=== PATIENT | male | born 1955 | race Caucasian/White ===

== ENCOUNTER 2017-08-21 07:57 | Outpatient (CLI) | payer BC ==
[2017-08-21 08:54] LABS: BUN (Urea Nitrogen) 16 mg/dL (8.4-25.7); Calc. Creatinine Clearance 0 mL/min (70-130); Estimated GFR-MDRD Greater than 90
--- NOTE | 2017-08-21 11:56 | CT ---
CT NECK WITH CONTRAST: Date: 08-21-17 History: 62-year-old male with R22.1 local swelling, mass, and lump. B37.9 candidiasis, unspecified. 62-year-old male with history of bladder cancer presents with left neck swelling, hoarseness and recu rrent left parotitis. FINDINGS: There is a large, approximately 3 x 2 x 3.5 cm solid heterogeneously moderately enhancing mass within the left parotid gland inferiorly and medially. It is centered in the superficial lobe of the paroti d gland, but a small portion of it slightly encroaches upon the deep lobe. A prominent branch of the retromandibular vein drapes over the lateral side of this mass. The inferior edge of this mass is at the parotid tail. There are multiple mildly enlarged bilateral cervical lymph nodes at levels 2, 3, 4 , and 5, several millimeters in size each, nonspecific. There is no fat stranding associated with the parotid glands to indicate active, acute parotitis. The submandibular, parapharyngeal, couture dressmaker, r etropharyngeal, posterior cervical, and perivertebral spaces demonstrate no major pathology other watson n the multiple mildly enlarged lymph nodes. There is symmetrical thickening of the true and false voc al cords and aryepiglottic folds, chronic versus acute. No discrete laryngeal mass is identified. The rest of the pharyngeal mucosal space is unremarkable. There is mild atherosclerotic plaque at the ca rotid bulbs and proximal internal carotid arteries without high grade stenosis. There is an osteoma i n one of the right ethmoid air cells. The sphenoid and maxillary sinuses are clear, except for a smal l mucous retention cyst at the anterior aspect of the left maxillary sinus. Bilateral tympanomastoid cavities are also grossly clear. Right lobe of the thyroid gland is asymmetrically larger than the le ft but no discrete thyroid mass is identified. IMPRESSION: Large, solid, neoplastic tumor centered in the inferior portion of the superficial lobe of the left p arotid gland. In general, it is often difficult to reliably distinguish low grade malignant parotid n eoplasms from benign ones on any imaging modality. POS: [facility]
[2017-08-21] MEDS ORDERED: Iopamidol 370 76% 100 ML VIAL ONE (13:34)
== END 2017-08-21 07:58 | disposition home or self-care (01) ==
LOC: CT 07:57
PROVIDERS: ATTEND Otolaryngology Otolaryngic Allergy
DX: R22.1 Localized swelling, mass and lump, neck (principal); B37.9 Candidiasis, unspecified
CPT/HCPCS: 36415; 70491; 82565; 84520

== ENCOUNTER 2018-07-30 11:54 | Emergency (ER) | payer BC ==
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
== END 2018-07-30 14:21 | disposition home or self-care (01) ==
LOC: ERS 11:54
DX: S29.012A Strain of muscle and tendon of back wall of thorax, initial encounter (principal); S00.81XA Abrasion of other part of head, initial encounter; E11.9 Type 2 diabetes mellitus without complications; E78.5 Hyperlipidemia, unspecified; I10 Essential (primary) hypertension; J44.9 Chronic obstructive pulmonary disease, unspecified; F41.9 Anxiety disorder, unspecified; F31.9 Bipolar disorder, unspecified; Z87.891 Personal history of nicotine dependence; V86.59XA Driver of other special all-terrain or other off-road motor vehicle injured in nontraffic accident, initial encounter
CPT/HCPCS: 70450; 71046; 72125

== ENCOUNTER 2018-11-26 08:04 | Outpatient (CLI) | payer BC ==
[2018-11-26] MEDS ORDERED: Iopamidol 370 76% 100 ML VIAL ONE (09:03)
--- NOTE | 2018-11-26 09:30 | CT ---
CT of the abdomen and pelvis with and without contrast: 11/26/2018 COMPARISON: CT of abdomen and pelvis without contrast 12/12/2016 HISTORY: History of bladder cancer status post chemotherapy, left flank pain, microhematuria TECHNIQUE: Axial CT imaging at 5 mm intervals obtained through the abdomen and pelvis with and withou t IV contrast using a CT urogram protocol. Coronal reformatted imaging obtained. FINDINGS: The imaged lung bases appear unremarkable. No nephrolithiasis or evidence of obstructive uropathy noted on either side. Cholecystectomy clips are noted. Hepatic hypodensity suggests steatosis. No focal liver lesion the spleen, pancreas, adrenal glands, a nd kidneys demonstrate no acute findings. No suspicious renal mass lesion is identified on either side. A tiny exophytic hyperdense lesion emanates from the anterior left renal midpole, stable when compare d to the 2017 exam, suggesting a hyperdense cyst. The urographic phase imaging is unremarkable. The urinary bladder is not well assessed on this examin ation. There is a fat-containing inguinal hernia on the right. There is extensive diverticulosis involving the descending colon and the sigmoid colon, abutting the superior aspect of the urinary bladder. No evidence for diverticulitis is seen on this exam. No gas is seen within the urinary bladder. No evidence for bowel obstruction or appendicitis. There is multifocal atherosclerotic calcification of the abdominal aorta and its branches. No enlarged retroperitoneal, mesenteric, or pelvic lymph nodes. Review of the osseous structures demonstrates no worrisome lytic or blastic lesions. IMPRESSION: Extensive colonic diverticulosis without evidence for diverticulitis. Hepatic steatosis. No evidence for obstructive uropathy or solid renal mass lesion.
== END 2018-11-26 08:05 | disposition home or self-care (01) ==
LOC: CT 08:04
PROVIDERS: ATTEND Urology
DX: C67.9 Malignant neoplasm of bladder, unspecified (principal); R31.21 Asymptomatic microscopic hematuria; K57.30 Diverticulosis of large intestine without perforation or abscess without bleeding; K76.0 Fatty (change of) liver, not elsewhere classified; Z92.21 Personal history of antineoplastic chemotherapy
CPT/HCPCS: 74178; Q9967

== ENCOUNTER 2020-05-11 13:03 | Observation (INO) | payer BC ==
[2020-05-11 14:05] LABS: #Eosinphils 0.2 thou/uL (0.0-0.7); #Lymphocytes 1.8 thou/uL (1.20-3.40); #Monocytes 0.4 thou/uL (0.11-0.59); #Neutrophils 4.3 thou/uL (1.40-6.50); %Basophils 0.6 % (0.0-1.0); %Eosinophils 2.9 % (0.0-10.0); %Lymphocytes 26.7 % (21.0-51.0); %Monocytes 5.9 % (0.0-10.0); %Neutrophils 63.9 % (42.0-75.0); Hemoglobin 15.4 g/dL (14.0-18.0); Mean Corpuscular HGB CONC 33.5 g/dL (32.0-36.0); Mean Corpuscular Hemoglobin 30.4 pg (27.0-31.0); Mean Corpuscular Volume 90.7 fL (78.0-98.0); Platelet Count 185 thou/uL (130-400); Red Blood Cell (RBC) Count 5.05 mill/uL (4.70-6.10); White Blood Cell (WBC) Count 6.8 thou/uL (4.8-10.8)
[2020-05-11 14:15] LABS: ALT (SGPT) 23 U/L (8-55); AST (SGOT) 20 U/L (5-34); Albumin 3.9 g/dL (3.4-4.8); Alkaline Phosphatase 52 U/L (40-110); Anion Gap 15 mmol/L (10-20); BUN (Urea Nitrogen) 21 mg/dL (8.4-25.7); Bilirubin, Total 0.4 mg/dL (0.2-1.2); Calc. Creatinine Clearance 0 mL/min (70-130); Carbon Dioxide 25 mmol/L (23-31); Chloride 100 mmol/L (98-107); Estimated GFR-MDRD 60; Globulin 3.4 g/dL (2.4-3.5); Glucose 270 mg/dL (80-115); Lipase 47 U/L (8-78); Potassium 3.2 mmol/L (3.5-5.1); Protein, Total 7.3 g/dL (5.8-8.1); Sodium 137 mmol/L (136-145)
--- NOTE | 2020-05-11 14:37 | RAD ---
XR Chest 1 View Portable History: Syncopal episode Comparison: Chest radiograph July 30, 2018 Findings: Mild background lung hyperinflation. Scarring both lung bases. No confluent airspace consol idation, pneumothorax or effusion. No acute osseous abnormality. Impression: No acute intrathoracic abnormality.
[2020-05-11] MEDS ORDERED: Potassium Chloride 20 MEQ TAB ONE (15:18)
[2020-05-11] MEDS ORDERED: Aspirin Chewable 81 MG TAB ONE (15:18)
--- NOTE | 2020-05-11 15:24 | CT ---
CT OF THE BRAIN WITHOUT CONTRAST: Date: 05/11/2020 INDICATION: History of syncopal episode. COMPARISON: Prior exam dated 07/30/2018. FINDINGS: No acute infarct, hemorrhage, or hydrocephalus is present. There is a new small hypodensity within th e anterior limb of the right internal capsule on image 13 of series 2. No additional density abnormal ity is seen within the brain parenchyma. No midline shift is evident. No hydrocephalus is noted. No i ntracranial hemorrhage is noted. Mastoid air cells are clear. There is mild mucosal thickening in the ethmoid air cells. No air fluid level is evident. IMPRESSION: 1. Small hypodensity involving the anterior limb of the right internal capsule may reflect interval development of some chronic microischemic change; however, an acute lacunar infarct could have a valdez lar appearance by CT. A follow-up MRI of the brain is recommended for additional characterization. 2. No intracranial hemorrhage, midline shift, or hydrocephalus. POS: [facility]
[2020-05-11 16:47] LABS: Bacteria/HPF 3+ HPF (None Seen); Bilirubin Negative (Negative); Blood, Urine 2+ (Negative); Clarity Clear (Clear); Glucose, Urine (Dipstick) Greater than 1000 mg/dL (Negative); Ketone, Urine Negative (Negative); Leukocyte 75 Leu/uL (Negative); Nitrite Negative (Negative); Protein, Urine (Dipstick) 30 mg/dL (Neg-Trace); RBC/HPF 21-50 HPF (0-3); Specific Gravity, Urine 1.029 (1.002-1.036); Squamous Epithelial None Seen HPF (0-3); Urobilinogen Normal mg/dL (Less than 2); WBC/HPF Greater than 50 HPF (0-3); pH, Urine 5.5 (5.0-9.0)
[2020-05-11] MEDS ORDERED: HumaLOG 300 UNITS/3 ML VIAL SC PRN (17:02)
[2020-05-11] MEDS ORDERED: Dextrose 50% Abboject 50 ML SYRINGE SLOW IVP PRN (17:02)
[2020-05-11] MEDS ORDERED: Dextrose 5% in Water 1,000 ML IV PRN (17:02)
[2020-05-11 17:14] LABS: Lactic Acid 1.4 mmol/L (0.5-2.2)
[2020-05-11 17:22] LABS: Troponin I Less than 0.010 ng/mL (< 0.028)
--- NOTE | 2020-05-11 17:25 | PDOC.HHP ---
Hospitalist HPI - History of Present Illness Near syncope History of Present Illness: This is a 65-year-old male patient with a past medical history of diabetes mellitus, hypertension who presented today as a referral from his PCPs office secondary to hypotension and near syncope. Patient was in his usual state of health when he followed up today for visit his PCP to evaluate for peripheral vascular disease. How his BP has been checked was noted to be very low and he was dizzy. Status referred here for further evaluation. He has a history of hypertension for which she has been on 0.2 mg daily clonidine however recently this was increased to 0.2 mg twice a day. It appears his hypotension was due to recent increase in dose yesterday. He have also complains of chronic easy fatigability for the past several months At presentation his blood pressure was 80/40, pulse 64, respiratory 13, tempera ture 97.7, saturating 95% on room air. His labs showed lactic acid of 2.9, potassium 3.2, glucose 270 otherwise generally unremarkable. Troponin was less than 0.01.. Chest x-ray showed no acute intrathoracic abnormality. Next He was given low-dose aspirin 3 2 7 mg, 40 mEq potassium and 1 L normal saline with improvement in his blood pressure. His dizziness has resolved at the time of his evaluation Hospitalist ROS - Review of Systems Constitutional: denies: fever, chills, sweats Eyes: denies: pain Respiratory: denies: cough, shortness of breath, hemoptysis Cardiovascular: denies: chest pain, palpitations, orthopnea Gastrointestinal: denies: nausea, vomiting, abdominal pain, diarrhea Musculoskeletal: denies: neck pain, back pain Neurological: denies: weakness, numbness, incoordination Hospitalist History - Past Medical History Cardiac: reports: HTN Endocrine: reports: Diabetes - Past Surgical History Other Surgical History: Tumor resection, TURBT - Social History Smoking Status: Former smoker Alcohol: reports: Rare Living Situation: With Family Activity level: independent ambulation - Exam General Appearance: awake alert ENT: normocephalic atraumatic, moist mucosa Heart: RRR, no murmur, no gallops, normal peripheral pulses Respiratory: no wheezes, no rales, no ronchi, no tachypnea Gastrointestinal: soft, non-tender, non-distended, normal bowel sounds Extremities: no cyanosis, no clubbing, no edema Extremities - other findings: Small ulcer on sole of right foot Neurological: cranial nerve grossly intact, no weakness Musculoskeletal: normal tone, no muscle wasting Psychiatric: normal affect, normal behavior, A&O x 3 Hospitalist Results - Labs Result Diagrams: 05/11/20 13:40 05/11/20 13:40 Lab results: WBC 6.8 thou/uL (4.8-10.8) 05/11/20 13:40 Hgb 15.4 g/dL (14.0-18.0) 05/11/20 13:40 Hct 45.8 % (42.0-52.0) 05/11/20 13:40 MCV 90.7 fL (78.0-98.0) 05/11/20 13:40 Plt Count 185 thou/uL (130-400) 05/11/20 13:40 Neutrophils % 63.9 % (42.0-75.0) 05/11/20 13:40 Sodium 137 mmol/L (136-145) 05/11/20 13:40 Potassium 3.2 mmol/L (3.5-5.1) L 05/11/20 13:40 Chloride 100 mmol/L (98-107) 05/11/20 13:40 Carbon Dioxide 25 mmol/L (23-31) 05/11/20 13:40 BUN 21 mg/dL (8.4-25.7) 05/11/20 13:40 Creatinine 1.20 mg/dL (0.7-1.3) 05/11/20 13:40 Glucose 270 mg/dL (80-115) H 05/11/20 13:40 Lactic Acid 1.4 mmol/L (0.5-2.2) 05/11/20 16:50 Calcium 9.0 mg/dL (7.8-10.44) 05/11/20 13:40 Total Bilirubin 0.4 mg/dL (0.2-1.2) 05/11/20 13:40 AST 20 U/L (5-34) 05/11/20 13:40 ALT 23 U/L (8-55) 05/11/20 13:40 Alkaline Phosphatase 52 U/L (40-110) 05/11/20 13:40 Troponin I Less than 0.010 ng/mL (< 0.028) 05/11/20 16:50 Serum Total Protein 7.3 g/dL (5.8-8.1) 05/11/20 13:40 Albumin 3.9 g/dL (3.4-4.8) 05/11/20 13:40 Lipase 47 U/L (8-78) 05/11/20 13:40 Urine Ketones Negative mg/dL (Negative) 05/11/20 16:25 Urine Blood 2+ (Negative) A 05/11/20 16:25 Urine Nitrite Negative (Negative) 05/11/20 16:25 Ur Leukocyte Esterase 75 Amber/uL (Negative) A 05/11/20 16:25 Urine RBC 21-50 HPF (0-3) A 05/11/20 16:25 Urine WBC Greater than 50 HPF (0-3) A 05/11/20 16:25 Ur Squamous Epith Cells None Seen HPF (0-3) 05/11/20 16:25 Urine Bacteria 3+ HPF (None Seen) A 05/11/20 16:25 Hospitalist H&P A/P - Plan Plan: This is a 65-year-old male patient with history of diabetes mellitus hypertension brought in on account of near syncope and dizziness likely secondary to antihypertensive overdose. Near syncope Likely secondary to hypotension from clonidine Hold antiblood pressure medications now Continue gentle hydration 100 normal saline VT monitoring Fall precaution Monitor on telemetry overnight. Hypotension Corrected Hold blood pressure medication Easy fatigability Etiology unclear We will check phosphate level and mag and electrolytes Echocardiogram Monitor. Diabetes mellitus Check A1c Correctional dose insulin. Glucose monitoring. VT prophylaxisLovenox CODE STATUSfull
[2020-05-11 17:30] LABS: Magnesium 1.9 mg/dL (1.6-2.6); Phosphorus 3.6 mg/dL (2.3-4.7)
[2020-05-11 17:52] VITALS: BMI 32.5
[2020-05-11] MEDS: Sodium Chloride 0.9% 1,000 ML IV SCH (18:07)
[2020-05-11 20:10] LABS: Troponin I Less than 0.010 ng/mL (< 0.028)
[2020-05-11 23:46] LABS: SARS-CoV-2 MS2 Positive; SARS-CoV-2 N Gene Negative; SARS-CoV-2 S Gene Negative; SARS-CoV-2 by NAA Not Detected (NotDetected); SARS-CoV-2 orf1ab Negative
--- NOTE | 2020-05-11 23:46 | PDOC.FMACP ---
Advance Care Planning - Note Summary: Advanced Care Planning was discussed. The diagnosis, prognosis and goals of care were discussed. Surrogate decision maker is patient's . He is full code
[2020-05-12 05:03] LABS: #Eosinphils 0.3 thou/uL (0.0-0.7); #Lymphocytes 1.9 thou/uL (1.20-3.40); #Monocytes 0.5 thou/uL (0.11-0.59); #Neutrophils 4.8 thou/uL (1.40-6.50); %Basophils 0.3 % (0.0-1.0); %Eosinophils 3.4 % (0.0-10.0); %Lymphocytes 25.5 % (21.0-51.0); %Monocytes 6.2 % (0.0-10.0); %Neutrophils 64.5 % (42.0-75.0); Hemoglobin 14.9 g/dL (14.0-18.0); Mean Corpuscular HGB CONC 32.7 g/dL (32.0-36.0); Mean Corpuscular Hemoglobin 30.5 pg (27.0-31.0); Mean Corpuscular Volume 93.4 fL (78.0-98.0); Mean Platelet Volume 8.4 fL (7.4-10.4); Platelet Count 140 thou/uL (130-400); RBC Distribution Width 12.8 % (11.5-14.5); Red Blood Cell (RBC) Count 4.89 mill/uL (4.70-6.10); White Blood Cell (WBC) Count 7.5 thou/uL (4.8-10.8)
[2020-05-12 05:22] LABS: Anion Gap 13 mmol/L (10-20); BUN (Urea Nitrogen) 18 mg/dL (8.4-25.7); Calc. Creatinine Clearance 151 mL/min (70-130); Calcium 8.4 mg/dL (7.8-10.44); Carbon Dioxide 25 mmol/L (23-31); Chloride 103 mmol/L (98-107); Estimated GFR-MDRD Greater than 90; Glucose 121 mg/dL (80-115); Potassium 3.6 mmol/L (3.5-5.1); Sodium 137 mmol/L (136-145)
[2020-05-12] MEDS: Sodium Chloride 0.9% 1,000 ML IV SCH (05:55)
[2020-05-12] MEDS ORDERED: Enoxaparin Sodium 40 MG/0.4 ML SYRINGE SC SCH (09:00)
[2020-05-12] MEDS ORDERED: cefTRIAXone\\ROCEPHIN 1 GM in Sodium Chloride 0.9% 100 ML IVPB SCH (09:00)
[2020-05-12 12:24] VITALS: TEMP 99
[2020-05-12] MEDS ORDERED: Lisinopril 20 MG TAB PO SCH ×2 (13:00→21:00)
[2020-05-12 14:36] VITALS: BP 171/85
[2020-05-12] MEDS ORDERED: Mirtazapine 30 MG TAB PO SCH (21:00)
[2020-05-12] MEDS ORDERED: Non-Formulary Item 1 EACH (Lisinopril [Lisinopril] 40 MG Tablet) PO SCH (21:00)
[2020-05-13] MEDS ORDERED: Metoprolol Tartrate 100 MG TAB PO SCH (09:00)
== END 2020-05-12 15:06 | disposition home or self-care (01) ==
LOC: ERS 13:03 → ERHOLD 15:40 → 2NO 17:47
PROVIDERS: ADMIT Student in an Organized Health Care Education/Training Program; ATTEND Student in an Organized Health Care Education/Training Program
DX: I95.9 Hypotension, unspecified (principal); R55 Syncope and collapse; R53.83 Other fatigue; E11.9 Type 2 diabetes mellitus without complications; I10 Essential (primary) hypertension; E78.5 Hyperlipidemia, unspecified; J44.9 Chronic obstructive pulmonary disease, unspecified; F41.9 Anxiety disorder, unspecified; F31.9 Bipolar disorder, unspecified; Z87.891 Personal history of nicotine dependence; Z79.84 Long term (current) use of oral hypoglycemic drugs; Z79.899 Other long term (current) drug therapy; Z20.828 Contact with and (suspected) exposure to other viral communicable diseases
CPT/HCPCS: 36415; 36416; 70450; 71045; 80048; 80053; 81003; 81015; 83605; 83690; 83735; 84100; 84484; 85025; 87635; 93005; 93306; 96372; 96374; G0378; J0696; J1650; J3490; U0003

== ENCOUNTER 2023-05-31 13:08 | Outpatient (CLI) | payer BC, MEDICARE | END 2023-05-31 13:09 | disposition home or self-care (01) | LOC: BICRAD 13:08 | PROVIDERS: ATTEND Internal Medicine | DX: R06.02 Shortness of breath (principal); R05.9 Cough, unspecified | CPT/HCPCS: 36415; 71046; 80053; 83036; 85025 ==

== ENCOUNTER 2024-06-30 11:27 | Inpatient (IN) | payer MEDICARE, OTHER ==
[2024-06-30 12:25] LABS: Bacteria/HPF None Seen HPF (None Seen); Bilirubin Negative (Negative); Blood, Urine Negative (Negative); CAUTI Indications for Culture Dysuria,urgency,freq; Clarity Clear (Clear); Glucose, Urine (Dipstick) Normal (Negative); Ketone, Urine Negative (Negative); Leukocyte Negative Leu/uL (Negative); Nitrite Negative (Negative); Protein, Urine (Dipstick) 20 mg/dL (Neg-Trace); RBC/HPF 0-3 HPF (0-3); Specific Gravity, Urine 1.025 (1.002-1.036); Squamous Epithelial None Seen HPF (0-3); Urobilinogen Normal mg/dL (Less than 2); WBC/HPF 0-3 HPF (0-3); pH, Urine 5.5 (5.0-9.0)
[2024-06-30 12:36] LABS: Urine Culture Reflex No No
[2024-06-30 13:04] LABS: #Basophils 0.03 10x3/uL (0.0-0.2); %Basophils 0.4 % (0.0-1.0); %Eosinophils 3.6 % (0.0-10.0); %Lymphocytes 33.1 % (21.0-51.0); %Monocytes 9.6 % (0.0-10.0); %Neutrophils 53.2 % (42.0-75.0); Hemoglobin 15.4 g/dL (14.0-18.0); Mean Corpuscular HGB CONC 32.8 g/dL (32.0-36.0); Mean Corpuscular Hemoglobin 29.8 pg (27.0-31.0); Mean Corpuscular Volume 91.1 fL (78.0-98.0); Mean Platelet Volume 10.9 fL (7.4-10.4); Platelet Count 204 10x3/uL (130-400); Red Blood Cell (RBC) Count 5.16 mill/uL (4.70-6.10)
[2024-06-30] MEDS ORDERED: Iopamidol-370 76% 500 ML MDV (1 ML CHARGE) ONE (13:06)
[2024-06-30 13:20] LABS: Magnesium 2.1 mg/dL (1.6-2.6)
[2024-06-30 13:21] LABS: Troponin I 0.013 ng/mL (< 0.028)
[2024-06-30 13:24] LABS: ALT (SGPT) 22 U/L (8-55); AST (SGOT) 17 U/L (5-34); Albumin 4.2 g/dL (3.4-4.8); Alkaline Phosphatase 58 U/L (40-110); Anion Gap 17 mmol/L (10-20); BUN (Urea Nitrogen) 20 mg/dL (8.4-25.7); Bilirubin, Total 0.4 mg/dL (0.2-1.2); Calc. Creatinine Clearance 0 mL/min (70-130); Calcium 9.8 mg/dL (7.8-10.44); Carbon Dioxide 25 mmol/L (23-31); Chloride 104 mmol/L (98-107); Estimated GFR 94; Globulin 3.1 g/dL (2.4-3.5); Glucose 142 mg/dL (83-110); Potassium 3.8 mmol/L (3.5-5.1); Protein, Total 7.3 g/dL (5.8-8.1); Sodium 142 mmol/L (136-145)
[2024-06-30] MEDS ORDERED: hydrALAZINE 20 MG/ML VIAL ONE (13:36)
[2024-06-30] MEDS ORDERED: Labetalol HCl 100 MG/20 ML VIAL ONE (14:30)
[2024-06-30 18:02] LABS: Troponin I 0.011 ng/mL (< 0.028)
[2024-06-30] MEDS ORDERED: Senokot S 8.6-50 MG TAB PO PRN (18:10)
[2024-06-30] MEDS ORDERED: Bisacodyl 5 MG TAB PO PRN (18:10)
[2024-06-30] MEDS ORDERED: Melatonin 3 MG TAB PO PRN (18:23)
[2024-06-30 21:15] LABS: Troponin I Less than 0.010 ng/mL (< 0.028)
[2024-06-30 21:32] VITALS: BMI 32.1
[2024-06-30] MEDS: Insulin Lispro 100 UNIT/ML 10 ML VIAL SC PRN (22:55)
[2024-07-01] MEDS: Acetaminophen 325 MG TAB PO PRN (04:07)
[2024-07-01] MEDS: cloNIDine 0.1 MG TAB PO SCH ×2 (04:07→14:20)
[2024-07-01 05:21] LABS: #Basophils 0.03 10x3/uL (0.0-0.2); %Basophils 0.4 % (0.0-1.0); %Eosinophils 3.5 % (0.0-10.0); %Lymphocytes 31.8 % (21.0-51.0); Hematocrit 45.7 % (42.0-52.0); Hemoglobin 14.9 g/dL (14.0-18.0); Mean Corpuscular HGB CONC 32.6 g/dL (32.0-36.0); Mean Corpuscular Hemoglobin 29.9 pg (27.0-31.0); Mean Corpuscular Volume 91.6 fL (78.0-98.0); Mean Platelet Volume 10.7 fL (7.4-10.4); Platelet Count 181 10x3/uL (130-400); RBC Distribution Width 14.1 % (11.5-14.5); Red Blood Cell (RBC) Count 4.99 mill/uL (4.70-6.10)
[2024-07-01 05:33] LABS: Anion Gap 14 mmol/L (10-20); BUN (Urea Nitrogen) 13 mg/dL (8.4-25.7); Calc. Creatinine Clearance 129 mL/min (70-130); Calcium 9.8 mg/dL (7.8-10.44); Carbon Dioxide 28 mmol/L (23-31); Chloride 104 mmol/L (98-107); Estimated GFR 95; Glucose 114 mg/dL (83-110); Potassium 3.5 mmol/L (3.5-5.1); Sodium 142 mmol/L (136-145)
[2024-07-01] MEDS: Amlodipine 5 MG TAB PO SCH (08:15)
[2024-07-01] MEDS: Insulin Lispro 100 UNIT/ML 10 ML VIAL SC PRN (14:19)
[2024-07-01] MEDS: Hydrochlorothiazide 25 MG TAB PO SCH (14:20)
[2024-07-01] MEDS: Cilostazol 100 MG TAB PO SCH (17:22)
[2024-07-01] MEDS: metFORMIN 500 MG TAB PO SCH (17:22)
[2024-07-01] MEDS: Atorvastatin Calcium 10 MG TAB PO SCH (20:19)
[2024-07-01] MEDS: Gabapentin 300 MG CAP PO SCH (20:20)
[2024-07-01] MEDS: Mirtazapine 30 MG TAB PO SCH (20:21)
[2024-07-02] MEDS: Amlodipine 5 MG TAB PO PRN (00:31)
[2024-07-02] MEDS: Metoprolol Tartrate 100 MG TAB PO SCH (07:48)
[2024-07-02] MEDS: cloNIDine 0.1 MG TAB PO SCH (07:50)
[2024-07-02] MEDS: Glimepiride 4 MG TAB PO SCH (07:51)
[2024-07-02] MEDS: Venlafaxine 75 MG TAB PO SCH (07:51)
[2024-07-02] MEDS: Lisinopril 20 MG TAB PO SCH (07:51)
[2024-07-02] MEDS: Gabapentin 300 MG CAP PO SCH (07:52)
[2024-07-02] MEDS: Hydrochlorothiazide 25 MG TAB PO SCH (07:53)
[2024-07-02] MEDS ORDERED: Hydrochlorothiazide 25 MG TAB PO SCH (09:00)
[2024-07-02] MEDS ORDERED: cloNIDine 0.1 MG TAB PO SCH (09:00)
[2024-07-02 09:21] LABS: #Basophils 0.03 10x3/uL (0.0-0.2); %Basophils 0.5 % (0.0-1.0); %Eosinophils 4.8 % (0.0-10.0); %Lymphocytes 26.7 % (21.0-51.0); %Monocytes 7.7 % (0.0-10.0); Hematocrit 44.4 % (42.0-52.0); Hemoglobin 15.1 g/dL (14.0-18.0); Mean Corpuscular Hemoglobin 30.4 pg (27.0-31.0); Mean Corpuscular Volume 89.5 fL (78.0-98.0); Mean Platelet Volume 10.5 fL (7.4-10.4); Platelet Count 176 10x3/uL (130-400); RBC Distribution Width 13.7 % (11.5-14.5); Red Blood Cell (RBC) Count 4.96 mill/uL (4.70-6.10)
[2024-07-02 09:37] LABS: Anion Gap 13 mmol/L (10-20); BUN (Urea Nitrogen) 15 mg/dL (8.4-25.7); Calc. Creatinine Clearance 139 mL/min (70-130); Calcium 9.6 mg/dL (7.8-10.44); Carbon Dioxide 27 mmol/L (23-31); Chloride 101 mmol/L (98-107); Estimated GFR 97; Glucose 220 mg/dL (83-110); Potassium 3.2 mmol/L (3.5-5.1); Sodium 138 mmol/L (136-145)
[2024-07-02 11:31] VITALS: BP 108/63; TEMP 97.9
[2024-07-02] MEDS: Potassium Chloride 20 MEQ TAB PO SCH (12:41)
== END 2024-07-02 13:22 | disposition home or self-care (01) | DRG 305 ==
LOC: ERS 11:27 → OBS 17:12 → OBSVTOIN 07-01 13:54
PROVIDERS: ADMIT Internal Medicine; ATTEND Family Medicine
DX: I16.0 Hypertensive urgency (principal); T46.5X6A Underdosing of other antihypertensive drugs, initial encounter; E11.40 Type 2 diabetes mellitus with diabetic neuropathy, unspecified; I10 Essential (primary) hypertension; E78.5 Hyperlipidemia, unspecified; Z85.51 Personal history of malignant neoplasm of bladder; Z91.148 Patient's other noncompliance with medication regimen for other reason
CPT/HCPCS: 36415; 36416; 70450; 71045; 71275; 74174; 80048; 80053; 81001; 83735; 83880; 84484; 85025; 93005; 96374; 96375; G0378; J0360; J1815; Q9967

== ENCOUNTER 2025-06-17 12:36 | Outpatient (CLI) | payer MEDICARE, OTHER | END 2025-06-17 12:37 | disposition home or self-care (01) | LOC: CT 12:36 | PROVIDERS: ATTEND Orthopaedic Surgery | DX: M50.322 Other cervical disc degeneration at C5-C6 level (principal); M50.323 Other cervical disc degeneration at C6-C7 level; M54.2 Cervicalgia; M51.16 Intervertebral disc disorders with radiculopathy, lumbar region; M48.02 Spinal stenosis, cervical region; M43.22 Fusion of spine, cervical region; M48.061 Spinal stenosis, lumbar region without neurogenic claudication | CPT/HCPCS: 72131; 72141 ==